=== PATIENT | female | born 1995 | race Caucasian/White ===

== ENCOUNTER → 2020-06-12 10:24 | Outpatient (CLI) | payer BC, SELFPAY ==
[2019-04-04 11:47] VITALS: BMI 23.6
[2020-06-12 11:09] LABS: T4 Free Direct 0.91 ng/dL (0.76-1.46)
[2020-06-14 08:26] LABS: T3 Total - Triiodothyronine 1.09 ng/mL (0.6-1.81)
[2020-06-14 16:08] LABS: Endomysial Antibody IgA Negative (Negative); Immunoglobulin A 80 mg/dL (87-352)
[2020-06-14 17:57] LABS: t-Transglutaminase IgA <2 U/mL (0-3)
== END ==
PROVIDERS: PCP Family Medicine
DX: R19.7 Diarrhea, unspecified (principal)
CPT/HCPCS: 36415; 82784; 83516; 84439; 84480; 86255

== ENCOUNTER 2021-03-03 15:00 | Outpatient (CLI) | payer BC, SELFPAY | END 2021-03-03 23:59 | disposition short-term general hospital (02) | LOC: LABSPEC 15:02 | PROVIDERS: PCP Family Medicine; Referring Provider Physician Assistant; Visit Provider Physician Assistant | DX: Z11.52 Encounter for screening for COVID-19 (principal) | CPT/HCPCS: 87635; U0003; U0005 ==